=== PATIENT | male | born 1980 ===

== ENCOUNTER 2024-07-18 10:45 | Outpatient (AMB) | payer OTHER, SELFPAY ==
--- NOTE | 2024-07-18 10:56 | A.OFFVIS_ITS ---
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 Patient education has been provided via AUA video, via printed information, risks of failure, recovery time, bruising and potential pain syndrome have been stressed Discussion today focused on the presence of vasectomy and the risks, benefits and alternatives that are available. Vasectomy as intended as a permanent form of control. Printed information and literature was provided to the patient. Overall there is a one in 2500 failure rate. This can occur at any time after vasectomy. Risks were discussed highlighting hematoma, spermatocele, epid idymal congestion, development of sperm antibodies, and development of chronic pain estimated between 1-5%. The procedure was reviewed in detail. Anatomical diagrams of the male genitalia were used to explain the location of the vas deferens. The vas deferens will be transected, the proximal end will be cauterized, a metal clip would be applied to separate the 2 vas deferens ends. It was explained the procedure will be done in the office and takes approximately 10-15 minutes. Less common problems that arise with vasectomy include hematoma, bleeding, allergic reaction to anesthetic, epididymal infection, epididymal congestion, scrotal discomfort, spermatic leak, spermatic granuloma and the possibility of antisperm antibodies. He understands these risks and wishes to proceed. Consent was signed at the office today. He also understands that it takes 12 weeks for sperm to fully clear the system. He will need to provide a semen sample at 12 weeks and if this is not clear a 2nd sample at 16 weeks. Medical clearance to stop using protection will only be provided if he satisfies published criteria for sperm clearance. Review of Systems Const All systems reviewed & are unremarkable except as noted in HPI and below Physical Exam Const General: cooperative, healthy appearing, comfortable, no acute distress, well developed, alert and awake Nutritional Appearance: average body habitus Orientation/consciousness: patient oriented x3 Limitations: no limitations HEENT Head: Yes normal to inspection, Yes normocephalic and Yes atraumatic Ears: hearing grossly normal bilaterally Eyes General: appearance normal, both eyes and all related structures Neck Neck: Yes normal visual inspection and Yes trachea midline Chest Chest palpation & inspection: normal inspection of the chest Resp Effort & Inspection: normal respiratory effort and able to speak in complete sentences Cardio Rate: regular rate GI Inspection: Yes normal to inspection General: Yes no CVA tenderness Back/Spine/Pelvis Back: no CVA tenderness Skin General skin exam: no rashes or lesions noted Neuro General: patient oriented x3 Extrem General: Yes normal to inspection Psych Appearance: grossly normal and well kempt Mental Status: mental status grossly normal Speech and movement: Normal speech and movement present and Clear speech present Affect: normal affect Attitude: cooperative Thought process: Normal thought process present Thought content: Normal thought content present Insight: Fair insight present (Psych) Judgement: Fair judgement present (Psych) Assessment & Plan Assessment & Plan (1) Anxiety about health: Code(s): R45.89 - Other symptoms and signs involving emotional state Category: Medical (2) Vasectomy evaluation: Code(s): Z30.09 - Encounter for other general counseling and advice on contraception Category: Medical Plan We discussed vasectomy at length; risks and benefits Consent obtain Prescription provided; we discussed specific instructions of bringing medications to office day of procedure. We discussed semen analysis via in office verses fellows kit All questions were answered Will schedule for vasectomy Follow-up per doctor's orders; or sooner with any issues, concerns, and or questions. Medications: New diazepam (Valium) take one tab when arrive for procedure 2 mg PO DAILY 2 tabs 0RF anxiety R45.89 - Other symptoms and signs involving emotional state tramadol 50 mg PO Q8H PRN 7 tabs 0RF pain Patient Instructions: The patient had an opportunity to ask questions regarding the treatment plan. All questions were answered. Physical exam, labs, and imaging were discussed and reviewed in detail. As well as risks, benefits, and discussion of treatment cho ices. No major barriers to understanding were identified. The patient expressed understanding and agreement with the above treatment plan. The patient was made aware they should contact our office by phone for worsening of their current condition, the appearance of new symptoms, or with any questions or concerns. Compliance is encouraged with any medications and follow up testing that is ordered. It is a privilege to be allowed the opportunity to participate in? your urological care.? Again, if you have any questions or concerns If you have any questions or concerns please do not hesitate to contact me. The office is [phone]. This note is constructed using voice recognition software. While every effort has been made to ensure accuracy plug wirer errors may have been included. Yours sincerely, TOÑO Handy Coding Level of Care Code New Pt Level 4 (70192) Diagnoses Anxiety about health R45.89 Vasectomy evaluation Z30.09
== END 2024-07-18 12:19 | disposition home or self-care (01) ==
PROVIDERS: PCP Family Medicine; Visit Provider Nurse Practitioner Family
DX: R45.89 Other symptoms and signs involving emotional state (principal); Z30.09 Encounter for other general counseling and advice on contraception
CPT/HCPCS: 99204

== ENCOUNTER → 2024-07-18 10:45 | Outpatient (BNVA) | payer OTHER, SELFPAY | PROVIDERS: PCP Family Medicine; Visit Provider Nurse Practitioner Family ==

== ENCOUNTER 2024-11-01 14:58 | Outpatient (AMB) | payer OTHER, SELFPAY ==
--- OUTSIDE RECORDS SUMMARY | 2024-11-01 15:02 | XMS_ITS | Clinical Summary ---
Author Organization [address] Address [address] [place] [id number] Phone Care Team Providers Care Business Services Specialist Sales Name Role Phone Alexi Enciso MD Primary Care Provider [phone]- [phone] Allergies No known active allergies Active Problems Problem Noted Date Diagnosed Date Hepatic steatosis 05/27/2019 Elevated LFTs 05/17/2019 Encounters Date Type Department Care Team Description 09/19/2024 Telephone Lung Screening Program - [address] [place] [address] Marci Verde [place] Appointment ([facility] Cancer Screening Program) from Last 3 Months Immunizations Name Administration Dates Next Due Influenza trivalent, with pr eservative (Fluzone; Afluria) 6mo and older 05/12/2016 Surgical History Surgery Date Site/Laterality Comments EYE SURGERY 2013 PROCEDURE: HISTORICAL EYE SURGERY; COMMENT: PRK lasik WISDOM TOOTH EXTRACTION PROCEDURE: HISTORICAL WISDOM TEETH EXTRACTION Medical History Medical History Date Comments Patient denies medical problems DX:Patient denies medical problems Social History Tobacco Use Types Packs/Day Years Used Date Smoking Tobacco: Never Smokeless Tobacco: Never Alcohol Use Standard Drinks/Week Comments Yes 0 (1 standard drink = 0.6 oz pur e alcohol) Sex and Gender Information Value Date Recorded Sex Assigned at Not on file Legal Sex Male 4:59 AM EST Gender Identity Not on file Sexual Orientation Not on file Obstetrics History Plan of Treatment Health Maintenance Due Date Last Done Comments Hepatitis B Vaccines (1 of 3 - 19+ 3-dose series) 01/27/1999 05/09/2016 Pneumococcal Vaccine: Pediatrics (0 to 5 Years) and At-Risk Patients (6 to 49 Years) (1 of 2 - PCV) 01/27/1999 Depression Screening 03/27/2022 Medicare Annual Wellness Visit 03/27/2022 Social Influencers of Health Screening 03/27/2022 COVID-19 Vaccine ( season) 2023 03/26/2021, 06/09/2020, 05/12/2020 Cholesterol Screening (Lipid Panel) 05/02/2024 05/02/2019 Influenza Vaccine (#1) 2024 , 12/25/2019, 02/05/2018, Additional history exists DTaP,Tdap,and Td Vaccines (2 - Td or Tdap) 05/06/2026 05/06/2016 HIV Screening Completed 05/02/2019 Hepatitis C Screening Completed 05/02/2019 HIB Vaccines Aged Out No longer eligi ble based on patient's age to complete this topic HPV Vaccines Aged Out No longer eligi ble based on patient's age to complete this topic Hepatitis A Vaccines Aged Out No long er eligible based on patient's age to complete this topic IPV Vaccines Aged Out No longer eligi ble based on patient's age to complete this topic MMR Vaccines Aged Out No longer eligi ble based on patient's age to complete this topic Meningococcal ACWY Vaccine Aged Out N o longer eligible based on patient's age to complete this topic Meningococcal B Vaccine Aged Out No l onger eligible based on patient's age to complete this topic RSV Immunization Patients Under 20 months Aged Out No longer eligible based on patient's age to complete this topic Varicella Vaccines Aged Out No longer eligible based on patient's age to complete this topic Procedures Procedure Name Priority Date/Time Associated Diagnosis Comments PROSTATE SPECIFIC ANTIGEN SCREEN Routine 10/01/2024 10:53 AM EDT Occupational exposure to air contaminants HEPATITIS C SCREENING Routine 05/02/2019 HIV SCREENING Routine 05/02/2019 LIPID PANEL Routine 05/02/2019 from Last 3 Months or Most Recently Relevant to Health Maintenance Results * Prostate specific antigen screen (10/01/2024 10:53 AM EDT) PSA 0.44 0.00 - 4.00 ng/mL LAB CHEMISTRY METHOD 10/01/2024 1:00 PM EDT [facility] Blood Venous blood specimen / Unknown Venipuncture / Unknown 10/01/2024 10:53 AM EDT 10/01/2024 11:20 AM EDT Narrative [facility] - 10/01/2024 1:00 PM EDT The Siemens Advia Centaur Chemiluminescent Immunoassay is used. Results obtained with different assay methods or kits cannot be used interchangeably. Results cannot be interpreted as absolute evidence of the presence or absence of malignant disease. Megan GARRIDO LAB BLOOD ORDERABLES Final Re sult [facility] [address] [place] [address], * HIV Screening (05/02/2019) HIV Screening Abstracted Historical Provider MD HEALTH MAINTENANCE Final Result * Hepatitis C Screening (05/02/2019) Pathologist [facility] Hepatitis C Screening Abstracted Historical Provider HEALTH MAINTENANCE Final Result * (ABNORMAL) Lipid panel (05/02/2019) LDL/HDL Ratio 4 0 - 4 Triglycerides 110 0 - 150 mg/dL Cholesterol 166 0 - 200 mg/dL HDL 42 >=40 mg/dL LDL Cholesterol 102(A) 0 - 100 mg/dL Blood Venous blood specimen / Unknown Historical Provider LAB BLOOD ORDERABLES Jovita l Result from Last 3 Months or Most Recently Relevant to Health Maintenance Insurance [employer] [address] [place] [address] Care Teams Business Services Specialist Sales Relationship Specialty Start Date End Date Alexi Enciso [facility] [address] [place] [address] PCP - General Family Medicine 09/19/24
--- NOTE | 2024-11-01 15:05 | A.OFFVIS_ITS ---
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 He is currently single He has fathered -?none The youngest child is -not applicable His partner is aware and permissive for a vasectomy Current form of control is condoms Current employment is [employer] Review of Systems Const Denies chills and Denies fever(s) Card Reports no additional complaints and Denies syncope Resp Denies cough GI Denies abdominal pain and Denies heartburn Reports as per HPI and Denies change in libido Neuro Denies syncope Psych Denies change in libido Endo Denies change in libido Physical Exam Const General: cooperative, healthy appearing, comfortable and no acute distress Orientation/consciousness: patient oriented x3 HEENT Face and sinus: Yes normal facial exam Mouth: moist mucous membranes Neck Neck: Yes normal visual inspection, Yes full ROM and Yes trachea midline Chest Chest palpation & inspection: normal inspection of the chest Resp Effort & Inspection: normal respiratory effort, able to speak in complete sentences and no respiratory distress GI Inspection: Yes normal to inspection Back/Spine/Pelvis Cervical Spine: normal cervical lordosis Thoracic/Lumbar Spine: thoracic and lumbar spine normal to inspection Skin General skin exam: no rashes or lesions noted Neuro General: patient oriented x3, gait normal, tone normal and moves all extremities Extrem General: Yes normal to inspection and Yes capillary refill normal Office Procedures Vasectomy Details: Preoperative diagnosis: Anxiety regarding Postoperative diagnosis: Anxiety regarding unplanned Procedure: Bilateral vasectomy Informed consent had been completed. Preoperative and postoperative instructions were provided to the patient. The patient has transportation to home identified at the completion of the procedure. Anti-anxiolytic prescription medication had been taken after consent verification and all questions answered. Tylenol with Codeine pain medication was also provided. The penis was elevated using a rubber band that was attached to the patient's shirt. Both vasa were palpated through the skin using a 3 finger technique and the penoscrotal junction was prepped with Betadine. After Betadine application the left vas was elevated using a 3 finger grasping technique. 1% lidocaine was used to create a subdermal bubble. Further anesthetic was then advanced using the 25-gauge needle along the vasa in a proximal fashion. Approximately 2 minutes were allowed to for local anesthetic uptake. Using the sharp spreading instrument the scrotal skin was spread longitudinally in line with the vasa until the subdermal layer had been divided. The vasa was then elevated from the scrotum using a ring clamp. Care was taken to elevate the superior portion of the vasa by rotating the ring clamp in a caudad direction. The battery powered cautery was used to divide the vasal sheath in a longitudinal direction on the exposed vasa and to strip the vasal sheath from the vasa. A 2nd narrower ring clamp was placed on the exposed vas and used to lift the vas from the vasal sheath. so it grasped the elevated vas. The cautery was used to divide vasal attachments and allow full exposure of a small loop of vasa. The sharp spreading instrument was then used to create a tunnel under the vasa and spread to allow the blood vessels of the vasa to retract from the vasa. A mosquito clamp was placed on the proximal portion of the vas. The battery- powered cautery was used to make a partial division in the proximal vas and then inserted in order to cauterize the proximal end of the vas. This was then cut and allowed to retract into the vasal sheath. The mosquito was then used to twist the vasa 180 degrees creating a fascial interposition. Using a 4-0 chromic suture the fascial interposition was sutured closed. The distal portion of the vas was then cut in order to obtain a segment of vasa. The vasa were allowed to retract back into the scrotum. A small snap was then used to approximate the skin edges and allow hemostasis without placement of a suture. A similar procedure was repeated on the right side. He tolerated the procedure well. Triple antibiotic was applied. A gauze was applied. An ice pack was applied to assist with minimizing swelling. Postoperative instructions were confirmed. He understands the need to continue to use control methods. A semen sample should be brought for inspection under the microscope in 10-12 weeks. CPT 85372 Vasectomy performed by: Nacho Pastrana Anesthetic used: other Specimens: vas segments not sent to pathology [id number] - Vasectomy Office Meds lidocaine (PF) 10 mg/mL (1 %) injection solution Performing Provider: Nacho Pastrana MD [facility] Administered by: Nacho Pastrana MD on 11/01/24 15:43 Dose Route Admin Location Dispensed Lot Number Expiration Date [facility] Waste Chopper 2 mL Infiltration 10 mL Total Dispensed Waste 10 mL 0 % Assessment & Plan Assessment & Plan (1) Anxiety about health: Code(s): R45.89 - Other symptoms and signs involving emotional state Category: Medical Plan Three-month follow-up Orders: Orders AMB Vasectomy Today R45.89 - Other symptoms and signs involving emotional state Coding Level of Care Code Procedure Only Diagnoses Anxiety about health R45.89 CPT Codes Office Procedure - CPT: 40357 - Vasectomy ([id number])
== END 2024-11-01 15:51 | disposition home or self-care (01) ==
LOC: HO.HUSH 14:59
PROVIDERS: PCP Family Medicine; Visit Provider Urology
DX: Z30.2 Encounter for sterilization (principal); R45.89 Other symptoms and signs involving emotional state
CPT/HCPCS: 55250

== ENCOUNTER → 2024-11-01 14:58 | Outpatient (BNVA) | payer OTHER, SELFPAY | PROVIDERS: PCP Family Medicine; Visit Provider Urology | DX: Z30.2 Encounter for sterilization (principal) | CPT/HCPCS: 55250; J2003 ==

== ENCOUNTER 2025-01-29 11:00 | Outpatient (AMB) | payer OTHER, SELFPAY ==
--- NOTE | 2025-01-29 11:04 | A.OFFVIS_ITS ---
Intake Visit Reasons: 3m/semen analysis Intake Note: Patient presents for 3 mo follow up vasectomy with semen analysis Urology Medications: none Blood Thinner: none Chromium Plater Required: No Accompanied by: Self / Same As Patient Allergies No Known Allergies Allergy (Verified 01/29/25 11:06) HPI Comments Details: Anthony is a pleasant male patient of He presents to the office today for - vasectomy evaluation No sperm seen on high-powered field Vasectomy follow-up The patient presents for vasectomy follow-up.? He is currently single He has fathered -?none The youngest child is -not applicable His partner is aware and permissive for a vasectomy Current form of control is condoms Current employment is [employer] Review of Systems Const Denies chills and Denies fever(s) Card Reports no additional complaints and Denies syncope Resp Denies cough GI Denies abdominal pain and Denies heartburn Reports as per HPI and Denies change in libido Neuro Denies syncope Psych Denies change in libido Endo Denies change in libido Physical Exam Const General: cooperative, healthy appearing, comfortable and no acute distress Orientation/consciousness: patient oriented x3 HEENT Face and sinus: Yes normal facial exam Mouth: moist mucous membranes Neck Neck: Yes normal visual inspection, Yes full ROM and Yes trachea midline Chest Chest palpation & inspection: normal inspection of the chest Resp Effort & Inspection: normal respiratory effort, able to speak in complete sentences and no respiratory distress GI Inspection: Yes normal to inspection Back/Spine/Pelvis Cervical Spine: normal cervical lordosis Thoracic/Lumbar Spine: thoracic and lumbar spine normal to inspection Skin General skin exam: no rashes or lesions noted Neuro General: patient oriented x3, gait normal, tone normal and moves all extremities Extrem General: Yes normal to inspection and Yes capillary refill normal Assessment & Plan Assessment & Plan (1) Anxiety about health: Code(s): R45.89 - Other symptoms and signs involving emotional state Category: Medical Plan P.r.n. Patient Instructions: This note is constructed using voice recognition software. While every effort has been made to ensure accuracy seamless hosiery knitter errors may have been included. Imaging studies, laboratory and physical exam results were discussed and reviewed in detail. No major barriers to patient understanding were identified. An opportunity to ask questions regarding the treatment plan was provided. All questions were answered. The patient expressed understanding and agreement with the above treatment plan. The patient is aware they should contact our office by phone for worsening of their current condition or the appearance of new urologic symptoms. Compliance is encouraged with any medications and followup testing that is ordered. It is a privilege to participate in the urologic care of your patient. If you have any questions or concerns regarding treatment for the above conditions, or other urologic issues, please do not hesitate to contact me. The office tele phone contact is [phone]. Sincerely, Dr Nacho Pastrana MD, [facility] - Urology Compassionate Specialist Care for the Genitourinary System Coding Level of Care Code Est Pt Level 3 (86289) Diagnoses Anxiety about health R45.89
== END 2025-01-29 11:36 | disposition home or self-care (01) ==
LOC: HO.HUSH 11:00
PROVIDERS: PCP Family Medicine; Visit Provider Urology
DX: R45.89 Other symptoms and signs involving emotional state (principal)
CPT/HCPCS: 99024